=== PATIENT | female | born 1965 | race Caucasian/White ===

== ENCOUNTER 2016-09-10 09:20 | Emergency (ER) | payer OTHER ==
[~2016-09-10] VITALS: Ht 154.9 cm; Wt 73.2 kg
[2016-09-10 10:31] LABS: HEMATOCRIT 48.8 % (36.0-46.0); MCH 28.7 PG (29.0-34.0); MCHC 32.4 G/DL (30.0-36.0); MCV 88.6 FL (83-99); MEAN PLAT.VOLUME 10.8 uM^3 (9.5-12.4); PLATELET COUNT 206 K/uL (156-360); RBC DIS.WIDTH-CV 13.8 % (11.8-14.6); RBC DIS.WIDTH-SD 44.6 % (39-53); RED BLOOD COUNT 5.51 M/uL (3.80-5.20); WHITE BLOOD COUNT 7.9 K/uL (4.1-10.2)
[2016-09-10 10:42] LABS: CHLORIDE 109 mEq/L (99-109); POTASSIUM 4.1 mEq/L (3.7-5.4); SODIUM 145 mEq/L (136-147)
[2016-09-10 10:44] LABS: GLUCOSE 162 mg/dL (70-99)
[2016-09-10 10:46] LABS: ANION GAP 10 MEQ/L (2-14)
[2016-09-10 10:48] LABS: GFR ESTIMATE (CALCULATED) > 59 mL/min/
[2016-09-10 10:49] LABS: UREA NITROGEN (BUN) 13 mg/dL (9-23)
[2016-09-10] MEDS ORDERED: ULTRAM50 MG PO (11:37)
[2016-09-10] MEDS ORDERED: NAPROSYN500 MG PO (11:37)
[2016-09-10 11:50] VITALS: BP 117/62
== END 2016-09-10 11:51 | disposition home or self-care (01) ==
LOC: EME 09:20
PROVIDERS: Nurse Practitioner Family
DX: S20.212A Contusion of left front wall of thorax, initial encounter (principal); V49.40XA Driver injured in collision with unspecified motor vehicles in traffic accident, initial encounter; F17.200 Nicotine dependence, unspecified, uncomplicated
CPT/HCPCS: 71020; 74177; 80048; 85027; 99281; 99284; J7030

== ENCOUNTER 2017-03-20 23:40 | Emergency (ER) | payer OTHER ==
[~2017-03-20] VITALS: Ht 154.9 cm; Wt 74.8 kg
[~2017-03-20 23:40] MED LIST: NAPROSYN500 MG PO; ULTRAM50 MG PO
[2017-03-21] MEDS ORDERED: AMOXICILLIN875 MG PO (03:40)
[2017-03-21] MEDS ORDERED: MOTRIN600 MG PO (03:40)
[2017-03-21] MEDS ORDERED: REGLAN10 MG PO (03:40)
[2017-03-21 03:49] VITALS: BP 110/75
== END 2017-03-21 03:49 | disposition home or self-care (01) ==
LOC: EXP 23:40 → EME 23:40 → EXP 03-21 03:49
DX: R51 Headache (principal); J32.2 Chronic ethmoidal sinusitis; F17.200 Nicotine dependence, unspecified, uncomplicated
CPT/HCPCS: 70450; 70486; 99281; 99284; J1885; J8540